=== PATIENT | female | born 1960 | race African-American/Black ===

== ENCOUNTER 2016-09-28 15:20 | Emergency (ER) ==
[2016-09-28 15:28] VITALS: BP 145/85
--- NOTE | 2016-09-28 16:04 | PROVIDER DOCUMENTATION ---
HPI-Rash/Wound/ReCheck - General Source: patient - History of Present Illness-Dermatology Location: reports: other (axilla,groin,buttocks) Quality: reports: painful Severity: reports: moderate Onset/Duration: reports: 1 week ago Timing: reports: still present Locality of Occurance: Home Similar Symptoms Previously?: Yes Recently seen or treated by another doctor?: Yes <Casey Arrington - Last Filed: 09/28/16 16:12> - General Source: patient <Rowan CageCandace - Last Filed: 09/28/16 17:42> - General Chief Complaint: Sores/Lesions Stated Complaint: SWOLLEN GLANDS/UNDER ARM Time Seen by Provider: 09/28/16 15:44 Allergies/Adverse Reactions: Allergies Allergy/AdvReac Type Severity Reaction Status Date / Time No Known Allergies Allergy Verified 08/29/16 15:36 Home Medications: Home Medication List Medication Instructions Recorded Confirmed Last Taken Type Multivit with Calcium,Iron,Min 1 tab PO DAILY 02/12/15 08/29/16 08/29/16 06:00 History [One Daily Women's] Clindamycin [Cleocin] 150 mg PO Q6HR #30 capsule 08/29/16 Unknown Rx Mupirocin Ointment [Bactroban 1 applicatn TOP TID #1 tube 08/29/16 Unknown Rx Ointment] Sulfamethoxazole/Trimethoprim 1 each PO BID #10 tablet 08/29/16 Unknown Rx [Bactrim Ds Tablet] Tramadol [Ultram] 50 mg PO Q8HR #20 tablet 08/29/16 Unknown Rx Gauze Bandage [Rolled Gauze] 1 each TP 2-4XDAY PRN PRN #7 units 09/11/16 Unknown Rx Mupirocin Ointment [Bactroban 1 applicatn TOP TID #1 tube NS 09/11/16 Unknown Rx Ointment] Soap/Povidone-Iodine [Betadine 118 ml TP 2-4XDAY PRN PRN #1 09/11/16 Unknown Rx 7.5% Skin Cleanser] liq..soap NS Tramadol [Ultram] 50 mg PO BID PRN #60 tablet 09/11/16 Unknown Rx Cephalexin [Keflex] 500 mg PO BID #30 capsule 03/08/17 Unknown Rx Sulfamethoxazole/Trimethoprim 1 each PO BID #30 tablet 09/28/16 Unknown Rx [Bactrim Ds Tablet] Tramadol HCl/Acetaminophen 1 each PO Q6H PRN PRN #10 tablet 09/28/16 Unknown Rx [Ultracet Tablet] - History of Present Illness-Dermatology Nature of Presenting Problem: Reports hx of hidradennitis suppurativa that presents to er with cc of lesions under bilateral axilla,inguinal groin and buttocks. Reports 7/10 pain. States was seen a few days ago given a topical antibiotic cream with no relief. Reports lesions are draining. (Casey Arrington) Review of Systems - Adult - REVIEW OF SYSTEMS - ADULT Constitutional: denies: chills, fever, fatique Eyes: reports: no symptoms reported Ears, Nose, Mouth & Throat: denies: ear pain, sinus problem, throat pain Cardiovascular: denies: chest pain, irregular heart rate, orthopnea, syncope Respiratory: reports: no symptoms reported Gastrointestinal: reports: no symptoms reported Genitourinary: reports: no symptoms reported Musculoskeletal: reports: no symptoms reported Integumentary: reports: see HPI, skin sores/ulcer. denies: mole changes, nail changes Neurological: reports: no symptoms reported Psychiatric: reports: no symptoms reported Endocrine: reports: no symptoms reported Hematologic/Lymphatic: reports: no symptoms reported Allergic/Immunologic: reports: no symptoms reported All Other Systems: Reviewed and Negative <Casey Arrington - Last Filed: 09/28/16 16:12> Past History - Adult - PAST MEDICAL HISTORY-ADULT Review of Records: reports: Nursing Assessment Review, Medications Reviewed Major Childhood Illnesses: reports: denies history Neurological: reports: Seizures/Epilepsy Other Conditions: reports: other (hidradeniitis suppurativa) - IMMUNIZATION STATUS Childhood Immunizations: See Nurse Assessment Flu Vaccine: See Nurse Assessment - FAMILY HISTORY Family History: reviewed, not pertinent - SOCIAL HISTORY Smoking: denies Substance Use: none/never <Casey Arrington - Last Filed: 09/28/16 16:12> - PAST MEDICAL HISTORY-ADULT Major Childhood Illnesses: reports: denies history, history unknown Cardiovascular: reports: denies history Respiratory: reports: denies history Gastrointestinal: reports: denies history Obstetrical/Gynecological: reports: denies history Genitourinary: reports: denies history Musculoskeletal: reports: denies history Neurological: reports: denies history Endocrine/Immune: reports: denies history Other Conditions: reports: skin disorder (hydradinitis suppuritiva) - PRIOR SURGERIES/PROCEDURES Surgical/Procedure History: reports: reviewed, not pertinent - IMMUNIZATION STATUS Childhood Immunizations: See Nurse Assessment Flu Vaccine: See Nurse Assessment - FAMILY HISTORY Family History: reviewed, not pertinent <Rowan Cage - Last Filed: 09/28/16 17:42> Physical Exam-General - PHYSICAL EXAM-ADULT Initial Vital Signs Reviewed: Yes - CONSTITUTIONAL General Appearance: appears well, alert, no apparent distress - EYES Eyes: PERRL/EOMI - HEAD, EARS, NOSE, MOUTH & THROAT HENMT: moist mucous membranes, normal ENT inspection, TMs normal, pharynx normal - RESPIRATORY Respiratory: chest non-tender, lungs clear, normal breath sounds, no pleuratic chest pain, no respiratory distress, no accessory muscle use - CARDIOVASCULAR Cardiovascular: tachycardia - GASTROINTESTINAL (ABDOMEN) Abdominal Exam: normal bowel sounds, non tender, soft, no organomegaly, no pulsatile mass - MUSCULOSKELETAL Back Exam: normal inspection, no CVA tenderness, no vertebral tenderness Extremity: normal range of motion, non-tender, normal gait, normal inspection, no pedal edema, no calf tenderness, normal capillary refill, pelvis stable - SKIN Integumentary: normal color, normal turgor, warm/dry, other (all obvious lesions 1.5cm or less and draining bilateral axilla, bilateral groin and buttocks.) - PSYCHIATRIC Psych/Mental Status: normal mood/affect, normal thought content, normal thought process, oriented x 3 <Casey Arrington - Last Filed: 09/28/16 16:12> Progress <Casey Arrington - Last Filed: 09/28/16 16:12> <Rowan Cage - Last Filed: 09/28/16 17:42> - PLAN OF CARE/RESULTS Progress/Plan/Lab Results: Vital Signs - 24 hr 09/28/16 15:25 Temperature 98.7 F Pulse Rate 106 H Respiratory 18 Rate Blood Pressure 145/85 O2 Sat by Pulse 100 Oximetry (Casey Arrington) Vital Signs Temp Pulse Resp BP Pulse Ox 09/28/16 15:25 98.7 F 106 H 18 145/85 100 No Known Allergies Allergy (Verified 08/29/16 15:36) Multivit with Calcium,Iron,Min [One Daily Women's] 1 tab PO DAILY 02/12/15 Clindamycin [Cleocin] 150 mg PO Q6HR #30 capsule 08/29/16 Mupirocin Ointment [Bactroban Ointment] 1 applicatn TOP TID #1 tube 08/29/16 Sulfamethoxazole/Trimethoprim [Bactrim Ds Tablet] 1 each PO BID #10 tablet 08/29 Tramadol [Ultram] 50 mg PO Q8HR #20 tablet 08/29/16 Gauze Bandage [Rolled Gauze] 1 each TP 2-4XDAY PRN PRN #7 units 09/11/16 Mupirocin Ointment [Bactroban Ointment] 1 applicatn TOP TID #1 tube NS 09/11/16 Soap/Povidone-Iodine [Betadine 7.5% Skin Cleanser] 118 ml TP 2-4XDAY PRN PRN #1 liq..soap NS 09/11/16 Tramadol [Ultram] 50 mg PO BID PRN #60 tablet 09/11/16 Cephalexin [Keflex] 500 mg PO BID #30 capsule 09/28/16 Sulfamethoxazole/Trimethoprim [Bactrim Ds Tablet] 1 each PO BID #30 tablet 09/28 Tramadol HCl/Acetaminophen [Ultracet Tablet] 1 each PO Q6H PRN PRN #10 tablet Discussed wound care and Abx use with pt, including f/u with PCP for further management. (Rowan Cage) Departure <Casey Arrington - Last Filed: 09/28/16 16:12> - Departure Time of Disposition Order: 16:02 Certified Medical Emergency: Emergent <Rowan Cage - Last Filed: 09/28/16 17:42> - Departure DIAGNOSIS: Hidradenitis suppurativa Disposition: HOME 01 Condition: Stable Additional Instructions: Take medications as directed. Return if symptoms get worse. Follow up with PCP or specialist for further management. ED Follow Up Instructions: You have been treated by a care provider in the Emergency Department. These instructions are being provided to you so you can have an understanding of how to care for yourself upon discharge. Upon discharge from the Emergency Department, you are responsible for making arrangements for follow-up care by a physician of your choice. Take all prescribed medications as directed. Return to the Emergency Department immediately for any new or worsening symptoms. You may call the Physician Referral phone number at [phone] to obtain a list of Physicians who are taking new patients. Prescriptions: Sulfamethoxazole/Trimethoprim [Bactrim Ds Tablet] 1 each PO BID #30 tablet Cephalexin [Keflex] 500 mg PO BID #30 capsule Tramadol HCl/Acetaminophen [Ultracet Tablet] 1 each PO Q6H PRN PRN #10 tablet PRN Reason: Pain Referrals: None,PCP [Primary Care Provider] - Instructions: Hidradenitis Suppurativa Attestation - Scribe Verification/Attestation Scribe:: Casey Arrington Acting as Scribe for:: Rowan Cage Scribe documention review:: This chart was documented by a scribe and accurately reflects the service the provider performed and the decisions made by the provider. <Casey Arrington - Last Filed: 09/28/16 16:12> - Physician/ ZANDER Attestation Patient care was provided by Advanced Practice Provider:: Yes Advanced Practice Provider:: Rowan Cage Advanced Practice Provider documentation review:: The Mid-level provider documentation, treatment plan and medical decision making was reviewed by the physician who agrees with all treatment and medical decision making by the MLP. <Rowan Cage - Last Filed: 09/28/16 17:42> Physician Attestation
== END 2016-09-28 16:11 | disposition home or self-care (01) ==
LOC: ED 15:20
DX: L73.2 Hidradenitis suppurativa (principal); L98.9 Disorder of the skin and subcutaneous tissue, unspecified; M79.622 Pain in left upper arm; M79.621 Pain in right upper arm; R10.30 Lower abdominal pain, unspecified; M79.1 Myalgia; Z87.2 Personal history of diseases of the skin and subcutaneous tissue